=== PATIENT | female | born 1985 | race Hispanic/Latino ===

== ENCOUNTER 2019-10-05 17:27 | Observation (INO) | payer BC ==
[~2019-10-05] VITALS: Ht 152.4 cm; Wt 112.0 kg
== END 2019-10-05 18:48 | disposition home or self-care (01) ==
LOC: LDH 17:27
PROVIDERS: ADMIT Specialist; ATTEND Specialist
DX: O36.8190 Decreased fetal movements, unspecified trimester, not applicable or unspecified (principal); Z3A.00 Weeks of gestation of pregnancy not specified
CPT/HCPCS: 59025; 76819; G0378

== ENCOUNTER 2019-12-03 13:00 | Inpatient (IN) | payer BC ==
[~2019-12-03] VITALS: Ht 152.4 cm; Wt 118.4 kg
[2019-12-09] MEDS ORDERED: LACTATED RINGERS 1000ML 1,000 ML IV SCH (05:30)
[2019-12-09] MEDS ORDERED: CALDOLOR 800MG+NS 250ML 250 ML IV PRN (05:30)
[2019-12-09] MEDS ORDERED: CEFAZOLIN SODIUM 1 GM VIAL IVP PRN (05:30)
[2019-12-09 06:09] VITALS: BP 124/81
[2019-12-09] MEDS ORDERED: DEXAMETHASONE SOD PHOSPHATE 10MG/ML 1ML VIAL ONE (07:45)
[2019-12-09] MEDS ORDERED: OXYTOCIN 10 USP UNITS/ML ONE ×3 (07:46→09:02)
[2019-12-09] MEDS ORDERED: ONDANSETRON HCL 4 MG/2 ML VIAL ONE ×2 (07:46→10:10)
[2019-12-09] MEDS ORDERED: DURAMORPH PF1 MG/ML 10ML AMP IV ONE (07:46)
[2019-12-09] MEDS ORDERED: EPHEDRINE SULFATE 50 MG/ML AMPULE ONE ×2 (07:46→08:27)
[2019-12-09] MEDS ORDERED: CEFAZOLIN SODIUM 1 GM VIAL IVP ONE (08:15)
[2019-12-09] MEDS ORDERED: PHENYLEPHRINE HCL 10 MG/ML 1ML VIAL IV ONE (09:01)
[2019-12-09] MEDS ORDERED: DEXTROSE 5 %-0.45 % NACL 1,000 ML IV PRN (09:45)
[2019-12-09] MEDS ORDERED: PROMETHAZINE HCL 25 MG/ML 1ML AMPULE IM PRN (09:45)
[2019-12-09] MEDS ORDERED: MEPERIDINE-PF 75 MG/ML SYG IM PRN (09:45)
[2019-12-09] MEDS ORDERED: OXYTOCIN-LR 20 UNITS/1000 ML 1,000 ML IV PRN (09:45)
[2019-12-09] MEDS ORDERED: SODIUM CHLORIDE 0.9% 10 ML VIAL IVP PRN (09:45)
[2019-12-09] MEDS ORDERED: DiphenhydrAMINE HCL 50 MG/ML VIAL IVP PRN (10:15)
[2019-12-09] MEDS ORDERED: NALOXONE HCL 0.4 MG/1 ML ML IVP PRN ×2 (10:15)
[2019-12-09] MEDS ORDERED: ONDANSETRON HCL 4 MG/2 ML VIAL IVP PRN (10:15)
[2019-12-09 11:13] VITALS: BP 120/79; PULSE 81; RESP 20; TEMP 97.4
[2019-12-09] MEDS: INSULIN HUMULIN R 100 UNIT/ML 3ML SQ SCH ×3 (11:30→20:37)
[2019-12-09] MEDS ORDERED: MEPERIDINE-PF 100 MG/ML SYG ONE (11:52)
[2019-12-09 16:35] VITALS: BP 105/65; PULSE 116; RESP 18; TEMP 98.3
[2019-12-09] MEDS: CEFAZOLIN 3GM /D5W 100ML 100 ML IV SCH (16:43)
[2019-12-09] MEDS: CALDOLOR 800MG+NS 250ML 250 ML IV SCH (17:44)
[2019-12-09 20:00] VITALS: BP 99/55; PULSE 95; RESP 20; TEMP 98.7
[2019-12-09 23:32] VITALS: BP 112/58; PULSE 92; RESP 20; TEMP 98.1
[2019-12-10] MEDS: CEFAZOLIN 3GM /D5W 100ML 100 ML IV SCH (00:05)
[2019-12-10] MEDS: CALDOLOR 800MG+NS 250ML 250 ML IV SCH (01:07)
[2019-12-10 03:04] VITALS: BP 102/55; PULSE 97; RESP 20; TEMP 98.1
--- NOTE | 2019-12-10 06:20 | NUR ---
SHERRI VALLEJO DC'Gerry, PT INST TO CALL FOR ASSIST BEFORE GETTING OUT OF BED, VERBALIZED UNDERSTANDING. ERIC CARE DONE. Addendum: 12/10/19 at 0630 by ADRIEL VEE RN RN Amended: Links added.
[2019-12-10] MEDS ORDERED: DIPH,PERTUSS(ACELL),TET VAC/PF 0.5 ML VIAL IM SCH (07:30)
[2019-12-10] MEDS: INSULIN HUMULIN R 100 UNIT/ML 3ML SQ SCH (07:30)
[2019-12-10 07:38] VITALS: BP 108/64; PULSE 95; RESP 20; TEMP 98.2
[2019-12-10] MEDS ORDERED: IBUPROFEN 800 MG TAB PO SCH (09:45)
[2019-12-10 11:48] VITALS: BP 99/59; PULSE 104; RESP 20; TEMP 98
--- NOTE | 2019-12-10 15:50 | NUR ---
PATIENT LEFT UNIT VIA WHEELCHAIR WITH BELONGINGS IN HAND. PERSONAL VEHICLE USED FOR TRANSPORTATION. BABY SECURE IN CARSEAT. NO COMPLAINTS OR CONCERNS ADDRESSED FROM PATIENT ON DISCHARGE.
== END 2019-12-10 15:50 | disposition home or self-care (01) | DRG 788 ==
LOC: EDSTATUS 13:00 → LDH 12-09 05:20 → WSH 12-09 11:10
PROC: 10D00Z1 Extraction of Products of Conception, Low, Open Approach (ICD-10-PCS; 2019-12-09)
PROC: 3E0234Z Introduction of Serum, Toxoid and Vaccine into Muscle, Percutaneous Approach (ICD-10-PCS; principal; 2019-12-09 08:00)
DX: O34.211 Maternal care for low transverse scar from previous cesarean delivery (principal); O24.429 Gestational diabetes mellitus in childbirth, unspecified control; O69.81X0 Labor and delivery complicated by cord around neck, without compression, not applicable or unspecified; N73.6 Female pelvic peritoneal adhesions (postinfective); O99.214 Obesity complicating childbirth; E66.01 Morbid (severe) obesity due to excess calories; Z3A.39 39 weeks gestation of pregnancy; Z37.0 Single live birth; Z23 Encounter for immunization